=== PATIENT | female | born 1965 | race African-American/Black ===

== ENCOUNTER 2022-05-26 14:21 | Emergency (ER) | payer OTHER ==
[~2022-05-26] VITALS: Ht 170.2 cm; Wt 127.0 kg
[2022-05-26] MEDS ORDERED: SODIUM CHLORIDE 0.9% 1,000 ML IV ONE (15:00)
[2022-05-26 15:09] LABS: BASOPHILS % 0.8 % (0.0-2.0); EOSINOPHILS % 0.5 % (0.0-5.0); HEMATOCRIT. 26.1 % (36.0-48.0); LYMPHOCYTES % 11.2 % (20.0-50.0); MEAN CORPUSCULAR HEMOGLOBIN 45.5 pg (28.0-32.0); MEAN CORPUSCULAR VOLUME 131.3 fL (81.0-99.0); MEAN PLATELET VOLUME 7.5 fl (7.4-10.4); NEUTROPHILS % 76.5 % (40.0-76.0); PLATELET 214 x1000/uL (130-400); RED BLOOD CELL COUNT 1.99 mill/uL (4.2-5.4); RED CELL DISTRIBUTION WIDTH 25.9 % (11.6-14.6)
[2022-05-26 15:12] LABS: CHLORIDE 100 mEq/L (98-107)
[2022-05-26 15:55] LABS: PLATELET ESTIMATE NORMAL
[2022-05-26] MEDS ORDERED: KETOROLAC 15MG/ML VIAL IV NR (16:30)
[2022-05-26] MEDS ORDERED: IOHEXOL-350 100 ML BOTTLE ONE (16:35)
[2022-05-26 18:39] VITALS: BP 130/85
== END 2022-05-26 18:40 | disposition home or self-care (01) ==
LOC: ER 14:21
DX: R42 Dizziness and giddiness (principal); R06.02 Shortness of breath; I10 Essential (primary) hypertension; E78.00 Pure hypercholesterolemia, unspecified; Z98.890 Other specified postprocedural states
CPT/HCPCS: 36415; 71045; 71275; 80053; 83735; 83880; 84484; 85025; 93005; 96361; 96374; 99285; J1885; Q9967